=== PATIENT | male | born 2000 | race Asian ===

== ENCOUNTER 2019-05-22 20:55 | Emergency (ER) | payer OTHER, SELFPAY ==
[2019-05-22 20:56] VITALS: BP 137/85; PULSE 101; RESP 18; TEMP 37.1; O2SAT 97; BMI 26.2
[2019-05-22 21:20] VITALS: BP 131/85; PULSE 97; RESP 15; O2SAT 98
[2019-05-22] MEDS: MethylPREDNISolone 125 MG/2 ML Vial IV (21:43)
[2019-05-22] MEDS: DiphenhydrAMINE 50 MG/ML Syringe 25 MG IV (21:44)
[2019-05-22] MEDS: Famotidine 200 MG/20 ML MDV 20 MG in 0.9% Normal Saline (Pres. free 8 ML 300 MG IV (21:45)
[2019-05-22 22:09] VITALS: BP 127/76; PULSE 92; RESP 16; O2SAT 97
[2019-05-22 23:35] VITALS: BP 124/73; PULSE 87; RESP 14; O2SAT 96
--- NOTE | 2019-05-23 00:05 | ED.VIS.GEN ---
History of Present Illness Chief Complaint: Allergic Reaction Informant: Patient Onset: Today Current Severity: Mild Maximum Severity: Moderate Narrative: Patient presents with allergic reaction. Patient states he drank soy milk this evening about 1-1/2 hours prior to arrival. He states shortly after drinking this he developed a stomach ache and a scratchy throat. Both of those symptoms have resolved. He still complains of itching and a rash. He has not yet taken anything for his symptoms. Past Medical History - Allergies and Home Meds Allergies/Adverse Reactions: Allergies soy Adverse Reaction (Verified 05/22/19 20:57) Food Allergy Primary Care Physician: Gorge Lozano MD [Primary Care Provider] - As Needed Past Medical History: None Smoking Status: Never smoker Review of Systems General: Denies: Chills, Fever Eyes: Denies: Visual changes - bilaterally ENT: Denies: Bilateral ear pain Cardiovascular: Denies: Chest pain, Palpitations Respiratory: Denies: Dyspnea, Cough Gastrointestinal: Reports: Abdominal pain. Denies: Nausea, Vomiting, Diarrhea Musculoskeletal: Denies: Extremity Pain Skin: Reports: Rash Neurological: Denies: Headache Allergy: Denies: Swelling of the mouth, Swelling of the tongue Physical Exam Vital Signs/Narrative: Vital Signs Temp Pulse Resp BP Pulse Ox 05/22/19 23:35 87 14 124/73 H 96 05/22/19 22:09 92 16 127/76 H 97 05/22/19 21:20 97 15 131/85 H 98 05/22/19 20:56 98.7 F 101 H 18 137/85 H 97 Inital Vital Signs reviewed: Yes General: Well nourished, Well developed Head: Normocephalic ENT: Moist mucous membranes, - - Posterior pharynx examination is unremarkable. Patient is speaking with a strong voice and has tolerated secretions well. Neck: Supple Cardiovascular: Regular rate, Regular rhythm Respiratory: No distress, CTA bilaterally Abdomen: Soft, Nontender Extremities: Nontender Skin: - - Patient has mild erythema diffusely over the face. He has patchy erythematous lesions over the trunk. Lesions are not consistent with true hives. Neurological: Alert, Oriented x3 Psychological: Normal affect Diagnostic/Tx/Re-eval - Medical Decision Making IV access was obtained. Patient was given Benadryl, Solu-Medrol, and Pepcid. After a time of observation patient states his symptoms are completely resolved and he feels significantly improved. On repeat evaluation his skin is completely back to baseline color. He will use Benadryl at home as needed. ED Disposition - Plan for ED Patient: Disposition: Home or Assisted Living Diagnosis: Allergic reaction Instructions: ALLERGIC REACTION, Other (General) Referrals: Gorge Lozano MD [Primary Care Provider] - As Needed Additional Instructions: Benadryl if rash returns.
[2019-05-23 00:20] VITALS: PULSE 72; PULSE 74; RESP 14; O2SAT 98
== END 2019-05-23 00:21 | disposition home or self-care (01) ==
PROVIDERS: Emergency Provider Emergency Medicine; PCP Pediatrics
DX: T78.1XXA Other adverse food reactions, not elsewhere classified, initial encounter (principal); R21 Rash and other nonspecific skin eruption; R10.9 Unspecified abdominal pain; X58.XXXA Exposure to other specified factors, initial encounter
CPT/HCPCS: 96374; 96375; 99284; J7030; J3490